=== PATIENT | male | born 1970 | race Hispanic/Latino ===

== ENCOUNTER 2018-08-07 21:18 | Inpatient (IN) | payer MEDICARE, OTHER ==
[~2018-08-07] VITALS: Ht 177.8 cm; Wt 149.3 kg
[~2018-08-07 21:18] MED LIST: CARB200T PO; ESOM20CA34 PO; FLUT16H NASAL; VALS80TA30 PO
[2018-08-07 22:57] LABS: BASOPHILS % (AUTO) 0.5 % (0.0-5.0); EOSINOPHILS % (AUTO) 0.6 % (0.0-8.0); LYMPHOCYTES % (AUTO) 28.8 % (21.0-51.0); MEAN CORPUSCULAR HEMOGLOBIN 29.8 pg (27.0-33.0); MEAN CORPUSCULAR HGB CONC 34.9 g/dL (32.0-36.0); MEAN CORPUSCULAR VOLUME 85.2 fL (79-99); MONOCYTES % (AUTO) 8.8 % (3.0-13.0); NEUTROPHILS % (AUTO) 61.3 % (40.0-77.0); NUCLEATED RED BLOOD CELLS 0.1 % (0.0-0.19); PLATELET COUNT (AUTO) 201 K/uL (130-400); RED BLOOD CELL COUNT(AUTO) 5.17 MIL/uL (4.50-6.20); RED CELL DISTRIBUTION WIDTH 13.5 % (11.0-15.5); WHITE BLOOD COUNT (AUTO) 6.5 K/uL (4.8-10.8)
[2018-08-07 22:58] LABS: CREATININE 0.8 mg/dL (0.5-1.5); INR 1.01 (0.85-1.15); PARTIAL THROMBOPLASTIN TIME 27.6 SEC (26.3-35.5); POTASSIUM 3.5 mmol/L (3.5-5.1); PROTHROMBIN TIME 10.6 SEC (9.6-11.6)
[2018-08-07 23:01] LABS: APPEARANCE,URINE Clear (CLEAR); BILIRUBIN,URINE Negative (NEGATIVE); COLOR,URINE Yellow (YELLOW); GLUCOSE, URINE (UA) >=1000 mg/dL (NEGATIVE); KETONES,URINE Negative (NEGATIVE); LEUKOCYTE ESTERASE ,URINE Negative (NEGATIVE); NITRATE,URINE Negative (NEGATIVE); OCCULT BLOOD,URINE Negative (NEGATIVE); PROTEIN,URINE Negative (NEGATIVE)
[2018-08-07 23:03] LABS: ALBUMIN 3.8 g/dL (3.5-5.0); BILIRUBIN,TOTAL 0.3 mg/dL (0.2-1.0); TOTAL PROTEIN, SERUM 8.3 g/dL (6.0-8.3)
[2018-08-07 23:30] LABS: BACTERIA,URINE Moderate /HPF (None Seen); RBC,URINE 0-1 /HPF (0-1); WBC,URINE 0-1 /HPF (0-1)
[2018-08-07 23:31] LABS: SQUAMOUS EPITHELIAL CELL,UR 0-2 /HPF (0-2)
[2018-08-08] MEDS ORDERED: ONDANSETRON HCL 4 MG/2 ML VIAL IVP PRN (00:30)
[2018-08-08] MEDS ORDERED: ACETAMINOPHEN 325 MG TAB PO PRN (00:30)
[2018-08-08] MEDS ORDERED: MORPHINE SULFATE 2 MG/ML 1ML SYG IVP PRN (00:30)
[2018-08-08] MEDS ORDERED: DEXAMETHASONE SOD PHOSPHATE 4 MG/ML 1ML VIAL ONE (00:49)
[2018-08-08 03:00] VITALS: BP 135/78
[2018-08-08] MEDS ORDERED: LOSA50TA64 PO (03:00)
[2018-08-08] MEDS ORDERED: CARB200T6 PO (03:00)
[2018-08-08] MEDS ORDERED: TOPI100T37 PO (03:00)
[2018-08-08] MEDS ORDERED: PRAV20TA4 PO (03:00)
[2018-08-08] MEDS ORDERED: PANT40TA25 PO (03:00)
[2018-08-08] MEDS ORDERED: ASPI-555 PO (03:00)
[2018-08-08] MEDS ORDERED: LORA10CA9 PO (03:00)
[2018-08-08] MEDS ORDERED: DAPA10TA PO (03:00)
[2018-08-08 08:12] VITALS: BP 123/72
[2018-08-08] MEDS ORDERED: DAPAGLIFLOZIN PROPANEDIOL 10 MG PO SCH (09:00)
[2018-08-08] MEDS ORDERED: LOSARTAN 50 MG TABLET PO SCH (09:00)
[2018-08-08] MEDS ORDERED: PANTOPRAZOLE SODIUM 40 MG TABLET.DR PO SCH (09:00)
[2018-08-08] MEDS ORDERED: LORATADINE 10 MG TABLET PO SCH (09:00)
[2018-08-08] MEDS ORDERED: TOPIRAMATE 100 MG TAB PO SCH (09:00)
[2018-08-08] MEDS ORDERED: ASPIRIN 81MG TAB.CHEW PO SCH (09:00)
[2018-08-08] MEDS: DEXAMETHASONE SOD PHOSPHATE 4 MG/ML 1ML VIAL IVP SCH ×2 (09:19→21:40)
[2018-08-08] MEDS: CARBAMAZEPINE 200 MG TABLET PO SCH ×2 (09:21→21:39)
--- NOTE | 2018-08-08 11:33 | NUR ---
[address] Lundberg to [facility] under the care of Dr Constantino for higher level of care . 1053 chart reviewed and met with pt and family inform them of transfer process and all in agreement for the transfer. 1120 spoke with [facility] transfer center coordinator information provided and coordinator will call back . Marcelo payne o
[2018-08-08 12:00] VITALS: BP 123/70
--- NOTE | 2018-08-08 12:17 | NUR ---
1154 transfer center call back and further information provided as requested will call back. Marcelo payne
--- NOTE | 2018-08-08 12:18 | NUR ---
4018 transfer center coordinator Antione call back with a denial due to capacity. primary nurse made aware. Marcelo
--- NOTE | 2018-08-08 13:36 | NUR ---
DCP Pt lives with Teo Sanchez [phone] and son. Pt reports he is independent, no DME or in home care services. Sees [facility], denies dc needs, will dc home Addendum: 08/08/18 at 1337 by GHAZALA MURCIA SS Amended: Links added.
[2018-08-08 16:00] VITALS: BP 124/76
--- NOTE | 2018-08-08 16:18 | NUR ---
8365 transfer request call to [facility] spoke with transfer intake nurse Miguelina information provided will call back. 1257 Dr wynn here on rounds he updated pt and family on transfer and process. and as per Dr wynn , pt is to remain in hospital till bed available at [facility] pt and spouse verbalized understanding. primary nurse made aware of plan. Marcelo payne
--- NOTE | 2018-08-08 16:26 | NUR ---
5786 call back from [facility] at [facility] will follow up in [place] rn
--- NOTE | 2018-08-08 16:45 | NUR ---
update given to pt and primary nurse both verbalized understanding . will follow up in am . Marcelo payne
--- NOTE | 2018-08-08 17:55 | NUR ---
LIAM IGLESIAS AWARE OF PT'S STATUS ON TRANSFERRED PER HOUSE SUP OK TO TRANSFER PT RESUME HOME MEDS CHARGE NURSE AWARE HOUSE SUP AWARE
--- NOTE | 2018-08-08 18:00 | NUR ---
DR. DIAZ AWARE OF PT'S TRANSFER
--- NOTE | 2018-08-08 18:20 | NUR ---
FULL SBAR REPORT GIVEN TO SAMIRA BANUELOS FROM [facility] IN [place] MEDICATION REC. FAXED CD' OF IMAGES IN THE YELLOW FOLDER NURSE SAMIRA MADE AWARE
--- NOTE | 2018-08-08 18:30 | NUR ---
[facility] , CALLED AGAIN REGARDING TRANSFER OF PT DEEJAY DRIVER SPOKE WITH HER PT WAITING TO BE TRANSFER WHEN EMS IS READY TO PICK HIM UP
--- NOTE | 2018-08-08 19:40 | NUR ---
FULL REPORT GIVEN TO NIGHT NURSE
[2018-08-08] MEDS ORDERED: ***HM***Pravastatin Sodium 20 MG PO SCH (21:00)
--- NOTE | 2018-08-08 22:40 | NUR ---
EMS ARRIVED TO SOLAR SALES ADVISOR PATIENT. D/C PAPERWORK SIGNED AND PACKET GIVEN TO EMS.
== END 2018-08-08 22:40 | disposition short-term general hospital (02) | DRG 55 ==
LOC: EDH 21:18 → EDHIP 08-08 00:14 → 4BH 08-08 02:33
PROVIDERS: ADMIT Internal Medicine Infectious Disease; ATTEND Internal Medicine Infectious Disease
DX: D32.0 Benign neoplasm of cerebral meninges (principal); Z68.42 Body mass index [BMI] 45.0-49.9, adult; G81.94 Hemiplegia, unspecified affecting left nondominant side; G40.209 Localization-related (focal) (partial) symptomatic epilepsy and epileptic syndromes with complex partial seizures, not intractable, without status epilepticus; D18.02 Hemangioma of intracranial structures; E66.01 Morbid (severe) obesity due to excess calories; I10 Essential (primary) hypertension; E11.9 Type 2 diabetes mellitus without complications; D18.09 Hemangioma of other sites; K21.9 Gastro-esophageal reflux disease without esophagitis; I25.10 Atherosclerotic heart disease of native coronary artery without angina pectoris; E78.5 Hyperlipidemia, unspecified; G93.89 Other specified disorders of brain; Z92.3 Personal history of irradiation; Z85.841 Personal history of malignant neoplasm of brain
CPT/HCPCS: 36415; 80053; 81001; 82948; 84484; 85025; 85610; 85730; 93005; G0378; J1100

== ENCOUNTER 2018-08-19 13:48 | Emergency (ER) | payer MEDICARE ==
[~2018-08-19 13:48] MED LIST changes: +ASPI-555 PO; -CARB200T PO; +CARB200T6 PO; +DAPA10TA PO; -ESOM20CA34 PO; -FLUT16H NASAL; +LORA10CA9 PO; +LOSA50TA64 PO; +PANT40TA25 PO; +PRAV20TA4 PO; +TOPI100T37 PO; -VALS80TA30 PO
[2018-08-19 15:26] LABS: APPEARANCE,URINE Turbid (CLEAR); BILIRUBIN,URINE Negative (NEGATIVE); COLOR,URINE Dark Yellow (YELLOW); GLUCOSE, URINE (UA) Negative (NEGATIVE); KETONES,URINE Negative (NEGATIVE); LEUKOCYTE ESTERASE ,URINE Large (NEGATIVE); NITRATE,URINE Positive (NEGATIVE); OCCULT BLOOD,URINE Moderate (NEGATIVE); PROTEIN,URINE POS 1+ (NEGATIVE)
[2018-08-19 16:00] LABS: AMORPHOUS SEDIMENT,UR Moderate /LPF (None Seen); BACTERIA,URINE Moderate /HPF (None Seen); RBC,URINE 0-1 /HPF (0-1); SQUAMOUS EPITHELIAL CELL,UR 0-2 /HPF (0-2)
[2018-08-19] MEDS ORDERED: CEFTRIAXONE SODIUM 1 GM ONE (17:01)
[2018-08-19 17:09] LABS: BASOPHILS % (AUTO) 0.9 % (0.0-5.0); EOSINOPHILS % (AUTO) 2.1 % (0.0-8.0); HEMATOCRIT 43.6 % (42-54); LYMPHOCYTES % (AUTO) 34.8 % (21.0-51.0); MEAN CORPUSCULAR HEMOGLOBIN 29.6 pg (27.0-33.0); MEAN CORPUSCULAR HGB CONC 34.2 g/dL (32.0-36.0); MEAN CORPUSCULAR VOLUME 86.3 fL (79-99); MONOCYTES % (AUTO) 8.9 % (3.0-13.0); NEUTROPHILS % (AUTO) 53.3 % (40.0-77.0); NUCLEATED RED BLOOD CELLS 0.1 % (0.0-0.19); PLATELET COUNT (AUTO) 168 K/uL (130-400); RED BLOOD CELL COUNT(AUTO) 5.06 MIL/uL (4.50-6.20); RED CELL DISTRIBUTION WIDTH 13.8 % (11.0-15.5); WHITE BLOOD COUNT (AUTO) 6.9 K/uL (4.8-10.8)
[2018-08-19 17:20] LABS: CREATININE 0.8 mg/dL (0.5-1.5); POTASSIUM 3.8 mmol/L (3.5-5.1)
[2018-08-19 17:27] LABS: ALBUMIN 3.5 g/dL (3.5-5.0); BILIRUBIN,TOTAL 0.5 mg/dL (0.2-1.0); TOTAL PROTEIN, SERUM 7.7 g/dL (6.0-8.3)
== END 2018-08-19 18:02 | disposition home or self-care (01) ==
LOC: EDH 13:48
DX: N30.00 Acute cystitis without hematuria (principal); R33.9 Retention of urine, unspecified; I25.10 Atherosclerotic heart disease of native coronary artery without angina pectoris; E11.9 Type 2 diabetes mellitus without complications; K21.9 Gastro-esophageal reflux disease without esophagitis; E78.5 Hyperlipidemia, unspecified; I10 Essential (primary) hypertension
CPT/HCPCS: 36415; 51702; 80053; 81001; 85025; 87077; 87088; 87186; 96374; 99284; J0696

== ENCOUNTER 2018-08-20 09:14 | Emergency (ER) | payer MEDICARE ==
[2018-08-20] MEDS ORDERED: PHENAZOPYRIDINE HCL 200 MG TABLET ONE (10:22)
[2018-08-20] MEDS ORDERED: IPRATROPIUM/ALBUTEROL SULFATE 3 ML SOLUTION IH ONE (13:29)
== END 2018-08-20 10:36 | disposition home or self-care (01) ==
LOC: EDH 09:14
DX: T83.098A Other mechanical complication of other urinary catheter, initial encounter (principal); N39.0 Urinary tract infection, site not specified; K21.9 Gastro-esophageal reflux disease without esophagitis; E78.5 Hyperlipidemia, unspecified; I10 Essential (primary) hypertension; E11.9 Type 2 diabetes mellitus without complications; I25.10 Atherosclerotic heart disease of native coronary artery without angina pectoris; Z98.890 Other specified postprocedural states
CPT/HCPCS: 99282

== ENCOUNTER 2018-11-08 10:04 | Emergency (ER) | payer MEDICARE ==
[~2018-11-08 10:04] MED LIST changes: +DEXA4TAB PO
[2018-11-08] MEDS ORDERED: HYDROCODONE/ACETAMINOPHEN 5/325 MG TAB ONE (11:01)
== END 2018-11-08 11:11 | disposition home or self-care (01) ==
LOC: EDH 10:04
DX: S46.011A Strain of muscle(s) and tendon(s) of the rotator cuff of right shoulder, initial encounter (principal); I25.10 Atherosclerotic heart disease of native coronary artery without angina pectoris; E11.9 Type 2 diabetes mellitus without complications; K21.9 Gastro-esophageal reflux disease without esophagitis; E78.5 Hyperlipidemia, unspecified; I10 Essential (primary) hypertension; X50.0XXA Overexertion from strenuous movement or load, initial encounter; Y93.89 Activity, other specified; Y92.89 Other specified places as the place of occurrence of the external cause; Y99.8 Other external cause status
CPT/HCPCS: 73030

== ENCOUNTER 2018-11-16 01:32 | Emergency (ER) | payer MEDICARE ==
[2018-11-16 02:13] LABS: BASOPHILS % (AUTO) 1.1 % (0.0-5.0); EOSINOPHILS % (AUTO) 1.6 % (0.0-8.0); HEMATOCRIT 48.5 % (42-54); LYMPHOCYTES % (AUTO) 17.8 % (21.0-51.0); MEAN CORPUSCULAR HGB CONC 34.9 g/dL (32.0-36.0); MEAN CORPUSCULAR VOLUME 91.6 fL (79-99); MONOCYTES % (AUTO) 10.6 % (3.0-13.0); NEUTROPHILS % (AUTO) 68.9 % (40.0-77.0); NUCLEATED RED BLOOD CELLS 0.1 % (0.0-0.19); PLATELET COUNT (AUTO) 203 K/uL (130-400); RED BLOOD CELL COUNT(AUTO) 5.29 MIL/uL (4.50-6.20); RED CELL DISTRIBUTION WIDTH 16.5 % (11.0-15.5); WHITE BLOOD COUNT (AUTO) 6.1 K/uL (4.8-10.8)
[2018-11-16 02:23] LABS: CREATININE 0.8 mg/dL (0.5-1.5); POTASSIUM 3.7 mmol/L (3.5-5.1)
[2018-11-16 02:27] LABS: ALBUMIN 3.9 g/dL (3.5-5.0); BILIRUBIN,TOTAL 0.7 mg/dL (0.2-1.0); TOTAL PROTEIN, SERUM 7.6 g/dL (6.0-8.3)
[2018-11-16 02:41] LABS: APPEARANCE,URINE SLIGHTLY CLOUDY (CLEAR); BILIRUBIN,URINE Negative (NEGATIVE); COLOR,URINE Yellow (YELLOW); GLUCOSE, URINE (UA) >=1000 mg/dL (NEGATIVE); KETONES,URINE Negative (NEGATIVE); LEUKOCYTE ESTERASE ,URINE Negative (NEGATIVE); NITRATE,URINE Negative (NEGATIVE); OCCULT BLOOD,URINE Negative (NEGATIVE); PROTEIN,URINE Negative (NEGATIVE)
[2018-11-16 02:55] LABS: AMORPHOUS SEDIMENT,UR Moderate /LPF (None Seen); BACTERIA,URINE None Seen /HPF (None Seen); MUCUS,URINE Rare LPF (None Seen); RBC,URINE None Seen /HPF (0-1); SQUAMOUS EPITHELIAL CELL,UR Few /HPF (0-2); WBC,URINE None Seen /HPF (0-1); YEAST,URINE BUDDING Few /HPF (None Seen)
[2018-11-16] MEDS ORDERED: SODIUM CHLORIDE 0.9% 1000ML 1,000 ML IV ONE (03:09)
[2018-11-16] MEDS ORDERED: HYOSCYAMINE SULFATE 0.125 MG TAB.SUBL SL ONE (04:24)
== END 2018-11-16 04:58 | disposition home or self-care (01) ==
LOC: EDH 01:32
DX: K59.00 Constipation, unspecified (principal); E11.9 Type 2 diabetes mellitus without complications; E78.5 Hyperlipidemia, unspecified; I10 Essential (primary) hypertension; K21.9 Gastro-esophageal reflux disease without esophagitis
CPT/HCPCS: 36415; 74018; 74176; 80053; 81001; 82150; 83690; 85025; 99285; J7030

== ENCOUNTER 2018-12-03 19:49 | Emergency (ER) | payer MEDICARE ==
[2018-12-03] MEDS ORDERED: ONDANSETRON HCL 4 MG/2 ML VIAL ONE (21:12)
[2018-12-03] MEDS ORDERED: MORPHINE SULFATE 2 MG/ML 1ML SYG ONE (21:13)
[2018-12-03] MEDS ORDERED: SODIUM CHLORIDE 0.9% 1000ML 1,000 ML IV ONE (21:14)
[2018-12-03 21:15] LABS: BASOPHILS % (AUTO) 0.6 % (0.0-5.0); EOSINOPHILS % (AUTO) 0.2 % (0.0-8.0); HEMATOCRIT 42.5 % (42-54); LYMPHOCYTES % (AUTO) 5.6 % (21.0-51.0); MEAN CORPUSCULAR HEMOGLOBIN 33.3 pg (27.0-33.0); MEAN CORPUSCULAR HGB CONC 35.4 g/dL (32.0-36.0); MEAN CORPUSCULAR VOLUME 94.3 fL (79-99); MONOCYTES % (AUTO) 7.6 % (3.0-13.0); NUCLEATED RED BLOOD CELLS 0.1 % (0.0-0.19); PLATELET COUNT (AUTO) 82 K/uL (130-400); RED BLOOD CELL COUNT(AUTO) 4.51 MIL/uL (4.50-6.20); RED CELL DISTRIBUTION WIDTH 16.6 % (11.0-15.5); WHITE BLOOD COUNT (AUTO) 4.7 K/uL (4.8-10.8)
[2018-12-03 21:31] LABS: CREATININE 0.7 mg/dL (0.5-1.5); PLATELET MORPHOLOGY COMMENT SLIGHTLY DECREASED
[2018-12-03 21:32] LABS: INR 0.91 (0.85-1.15); PROTHROMBIN TIME 9.6 SEC (9.6-11.6)
[2018-12-03 21:37] LABS: ALBUMIN 3.1 g/dL (3.5-5.0); BILIRUBIN,TOTAL 0.5 mg/dL (0.2-1.0); TOTAL PROTEIN, SERUM 6.3 g/dL (6.0-8.3)
[2018-12-03] MEDS ORDERED: IOHEXOL-350 50ML VIAL IV ONE (21:58)
== END 2018-12-03 23:20 | disposition home or self-care (01) ==
LOC: EDH 19:49
DX: C71.9 Malignant neoplasm of brain, unspecified (principal); R79.1 Abnormal coagulation profile; E11.9 Type 2 diabetes mellitus without complications; K21.9 Gastro-esophageal reflux disease without esophagitis; E78.5 Hyperlipidemia, unspecified; I10 Essential (primary) hypertension; I25.10 Atherosclerotic heart disease of native coronary artery without angina pectoris
CPT/HCPCS: 36415; 70470; 80053; 85025; 85610; 85730; 96374; 96375; 99285; J2405; J7030; Q9967

== ENCOUNTER 2019-04-07 02:16 | Emergency (ER) | payer MEDICARE ==
[2019-04-07 02:55] LABS: BASOPHILS % (AUTO) 0.8 % (0.0-5.0); EOSINOPHILS % (AUTO) 0.3 % (0.0-8.0); HEMATOCRIT 44.9 % (42-54); LYMPHOCYTES % (AUTO) 20.1 % (21.0-51.0); MEAN CORPUSCULAR HEMOGLOBIN 33.8 pg (27.0-33.0); MEAN CORPUSCULAR HGB CONC 35.2 g/dL (32.0-36.0); MONOCYTES % (AUTO) 7.7 % (3.0-13.0); NEUTROPHILS % (AUTO) 71.1 % (40.0-77.0); NUCLEATED RED BLOOD CELLS 0.2 % (0.0-0.19); PLATELET COUNT (AUTO) 103 K/uL (130-400); RED BLOOD CELL COUNT(AUTO) 4.67 MIL/uL (4.50-6.20); RED CELL DISTRIBUTION WIDTH 15.1 % (11.0-15.5); WHITE BLOOD COUNT (AUTO) 4.3 K/uL (4.8-10.8)
[2019-04-07 03:09] LABS: CREATININE 0.8 mg/dL (0.5-1.5); POTASSIUM 3.3 mmol/L (3.5-5.1)
[2019-04-07 03:13] LABS: ALBUMIN 3.2 g/dL (3.5-5.0); BILIRUBIN,TOTAL 2.4 mg/dL (0.2-1.0); TOTAL PROTEIN, SERUM 6.7 g/dL (6.0-8.3)
== END 2019-04-07 05:56 | disposition home or self-care (01) ==
LOC: EDH 02:16
DX: K80.50 Calculus of bile duct without cholangitis or cholecystitis without obstruction (principal); E11.9 Type 2 diabetes mellitus without complications; I25.10 Atherosclerotic heart disease of native coronary artery without angina pectoris; K21.9 Gastro-esophageal reflux disease without esophagitis; E78.5 Hyperlipidemia, unspecified; I10 Essential (primary) hypertension
CPT/HCPCS: 36415; 74176; 76705; 80053; 83690; 85025

== ENCOUNTER 2019-05-08 22:52 | Emergency (ER) | payer MEDICARE ==
[2019-05-08] MEDS ORDERED: KETOROLAC TROMETHAMINE 30MG/ML ONE (23:54)
[2019-05-08] MEDS ORDERED: ORPHENADRINE CITRATE 30 MG/ML ML ONE (23:54)
[2019-05-08 23:55] LABS: BASOPHILS % (AUTO) 1.2 % (0.0-5.0); EOSINOPHILS % (AUTO) 0.3 % (0.0-8.0); HEMATOCRIT 45.6 % (42-54); LYMPHOCYTES % (AUTO) 24.2 % (21.0-51.0); MEAN CORPUSCULAR HEMOGLOBIN 34.1 pg (27.0-33.0); MEAN CORPUSCULAR HGB CONC 34.9 g/dL (32.0-36.0); MEAN CORPUSCULAR VOLUME 97.8 fL (79-99); MONOCYTES % (AUTO) 8.2 % (3.0-13.0); NEUTROPHILS % (AUTO) 66.1 % (40.0-77.0); NUCLEATED RED BLOOD CELLS 0.1 % (0.0-0.19); PLATELET COUNT (AUTO) 91 K/uL (130-400); RED BLOOD CELL COUNT(AUTO) 4.67 MIL/uL (4.50-6.20); RED CELL DISTRIBUTION WIDTH 15.7 % (11.0-15.5)
[2019-05-09] LABS: CREATININE 0.6 mg/dL (0.5-1.5); POTASSIUM 3.7 mmol/L (3.5-5.1)
[2019-05-09 00:05] LABS: INR 0.98 (0.85-1.15); PARTIAL THROMBOPLASTIN TIME 22.9 SEC (26.3-35.5); PROTHROMBIN TIME 10.3 SEC (9.6-11.6)
[2019-05-09 00:07] LABS: ALBUMIN 3.2 g/dL (3.5-5.0); BILIRUBIN,TOTAL 0.6 mg/dL (0.2-1.0); TOTAL PROTEIN, SERUM 6.8 g/dL (6.0-8.3)
[2019-05-09] MEDS ORDERED: MORPHINE SULFATE 2 MG/ML 1ML SYG ONE (02:24)
[2019-05-09] MEDS ORDERED: APIXABAN 2.5 MG TABLET PO ONE (03:35)
== END 2019-05-09 04:00 | disposition home or self-care (01) ==
LOC: EDH 22:52
DX: I82.492 Acute embolism and thrombosis of other specified deep vein of left lower extremity (principal); M54.5 Low back pain; E11.9 Type 2 diabetes mellitus without complications; K21.9 Gastro-esophageal reflux disease without esophagitis; E78.5 Hyperlipidemia, unspecified; I10 Essential (primary) hypertension
CPT/HCPCS: 36415; 73590; 80053; 85025; 85610; 85730; 93971; 96374; 96375 ×2; 99285; J1885; J2360

== ENCOUNTER 2019-08-22 13:26 | Inpatient (IN) | payer MEDICARE, OTHER ==
[~2019-08-22] VITALS: Ht 180.3 cm; Wt 118.5 kg
[2019-08-22 15:02] LABS: BASOPHILS % (AUTO) 0.3 % (0.0-5.0); HEMATOCRIT 48.6 % (42-54); LYMPHOCYTES % (AUTO) 27.3 % (21.0-51.0); MEAN CORPUSCULAR HEMOGLOBIN 33.5 pg (27.0-33.0); MEAN CORPUSCULAR HGB CONC 34.8 g/dL (32.0-36.0); MEAN CORPUSCULAR VOLUME 96.2 fL (79-99); MONOCYTES % (AUTO) 9.1 % (3.0-13.0); PLATELET COUNT (AUTO) 109 K/uL (130-400); RED BLOOD CELL COUNT(AUTO) 5.05 MIL/uL (4.50-6.20); RED CELL DISTRIBUTION WIDTH 13.2 % (11.0-15.5); WHITE BLOOD COUNT (AUTO) 3.8 K/uL (4.8-10.8)
[2019-08-22 15:13] LABS: CREATININE 0.6 mg/dL (0.5-1.5); POTASSIUM 3.7 mmol/L (3.5-5.1)
[2019-08-22 15:16] LABS: ALBUMIN 3.2 g/dL (3.5-5.0); BILIRUBIN,TOTAL 0.6 mg/dL (0.2-1.0); TOTAL PROTEIN, SERUM 6.8 g/dL (6.0-8.3)
[2019-08-22 18:30] VITALS: BP 99/78
[2019-08-22 19:00] VITALS: BP 110/85
[2019-08-22] MEDS ORDERED: ACETAMINOPHEN 325 MG TAB PO PRN (22:00)
[2019-08-22] MEDS ORDERED: ONDANSETRON HCL 4 MG/2 ML VIAL IVP PRN (22:00)
[2019-08-22] MEDS ORDERED: DEXA4TAB PO (22:56)
[2019-08-22] MEDS ORDERED: LACT10SO PO (22:56)
[2019-08-22] MEDS ORDERED: CARB200T6 PO (22:56)
[2019-08-22] MEDS ORDERED: METO-391 PO (22:56)
[2019-08-22] MEDS ORDERED: SULF1TAB89 PO (22:56)
[2019-08-22] MEDS ORDERED: SENN8.6T32 PO (22:56)
[2019-08-22] MEDS ORDERED: APIX2.5T PO (22:56)
[2019-08-22] MEDS ORDERED: ACET1TAB12 PO (22:56)
[2019-08-22] MEDS ORDERED: LEVE500T19 PO (22:56)
[2019-08-22 23:00] VITALS: BP 120/76
[2019-08-22] MEDS ORDERED: DEXTROSE 50%-WATER 50 ML DISP.SYRIN IV PRN (23:30)
[2019-08-22] MEDS ORDERED: GLUCAGON 1MG KIT 1 MG ML IM PRN (23:30)
[2019-08-23] MEDS ORDERED: DEXTROSE 50%-WATER 50 ML DISP.SYRIN IV PRN (01:30)
[2019-08-23] MEDS ORDERED: GLUCAGON 1MG KIT 1 MG ML IM PRN (01:30)
[2019-08-23 03:00] VITALS: BP 134/84
[2019-08-23] MEDS: INSULIN HUMULIN R 100 UNIT/ML 3ML SQ SCH ×4 (05:38→20:44)
[2019-08-23 05:40] LABS: BASOPHILS % (AUTO) 0.3 % (0.0-5.0); HEMATOCRIT 44.1 % (42-54); LYMPHOCYTES % (AUTO) 23.9 % (21.0-51.0); MEAN CORPUSCULAR HEMOGLOBIN 33.6 pg (27.0-33.0); MEAN CORPUSCULAR HGB CONC 34.9 g/dL (32.0-36.0); MEAN CORPUSCULAR VOLUME 96.3 fL (79-99); MONOCYTES % (AUTO) 8.5 % (3.0-13.0); PLATELET COUNT (AUTO) 104 K/uL (130-400); RED BLOOD CELL COUNT(AUTO) 4.58 MIL/uL (4.50-6.20); RED CELL DISTRIBUTION WIDTH 13.3 % (11.0-15.5); WHITE BLOOD COUNT (AUTO) 3.5 K/uL (4.8-10.8)
[2019-08-23 05:46] LABS: INR 0.92 (0.85-1.15); PARTIAL THROMBOPLASTIN TIME 23.3 SEC (26.3-35.5)
[2019-08-23 07:23] VITALS: BP 118/85
[2019-08-23] MEDS ORDERED: INSULIN R PO SS1 SQ SCH (07:30)
[2019-08-23] MEDS: DEXAMETHASONE 4 MG TAB PO SCH ×2 (08:00→17:00)
[2019-08-23] MEDS: PANTOPRAZOLE SODIUM 40 MG TABLET.DR PO SCH (09:00)
[2019-08-23] MEDS: FARXIGA 10 MG PO SCH (09:00)
[2019-08-23] MEDS: CARBAMAZEPINE 200 MG TABLET PO SCH ×2 (09:00→21:19)
[2019-08-23] MEDS: LOSARTAN 50 MG TABLET PO SCH (09:00)
[2019-08-23] MEDS: LEVETIRACETAM 500 MG TABLET PO SCH ×2 (09:00→21:26)
[2019-08-23] MEDS: METOPROLOL TARTRATE 25 MG TAB PO SCH ×3 (09:00→21:19)
[2019-08-23] MEDS: TOPIRAMATE 100 MG TAB PO SCH (09:00)
[2019-08-23] MEDS: ASPIRIN 81MG TAB.CHEW PO SCH (09:00)
[2019-08-23] MEDS: ACETAMINOPHEN-CODEINE 300/30MG TAB PO PRN (10:04)
[2019-08-23] MEDS: LACTULOSE 20 GM/30 ML UDCUP PO SCH ×2 (10:04→21:18)
[2019-08-23] MEDS ORDERED: MORPHINE SULFATE 2 MG/ML 1ML SYG IVP PRN (11:00)
[2019-08-23 12:00] VITALS: BP 133/94
--- NOTE | 2019-08-23 19:19 | NUR ---
D/C PLAN CM spoke to pts spouse regarding d/c planning. Pt lives with spouse. Spouse assist in care. States pt has [facility]. States she would like to return to same services at d/c. ELVIA obtained consent for ANJU to [facility]. No other needs verbalized or identified. Plan to home. CM to f/u. Addendum: 08/23/19 at 1 by GINGER POND CM Amended: Links added.
[2019-08-23 20:00] VITALS: BP 113/71
[2019-08-23] MEDS: SENNOSIDES 8.6 MG TABLET PO SCH (21:18)
[2019-08-24] VITALS: BP 113/75
[2019-08-24 03:46] VITALS: BP 106/73
[2019-08-24] MEDS: INSULIN HUMULIN R 100 UNIT/ML 3ML SQ SCH ×4 (06:19→21:00)
--- NOTE | 2019-08-24 06:20 | NUR ---
BLADDER SCAN Patient has not voided since 193, bladder scan done, only 67 mls. According to patient does not void during the night, till he wakes up in the morning. Patient denies any discomfort, very sleepy due to fall asleep at 0300 hours.
[2019-08-24] MEDS: FARXIGA 10 MG PO SCH (07:51)
[2019-08-24] MEDS ORDERED: APIXABAN 2.5 MG TABLET PO SCH (08:00)
[2019-08-24] MEDS ORDERED: SULFAMETHOX-TMP DS 800/160 TAB PO SCH (08:00)
[2019-08-24 08:18] VITALS: BP 118/66
[2019-08-24] MEDS: LACTULOSE 20 GM/30 ML UDCUP PO SCH ×2 (08:22→22:52)
[2019-08-24] MEDS: LEVETIRACETAM 500 MG TABLET PO SCH ×2 (08:23→22:55)
[2019-08-24] MEDS: ASPIRIN 81MG TAB.CHEW PO SCH (08:23)
[2019-08-24] MEDS: DEXAMETHASONE 4 MG TAB PO SCH ×2 (08:23→18:29)
[2019-08-24] MEDS: METOPROLOL TARTRATE 25 MG TAB PO SCH ×2 (08:23→22:53)
[2019-08-24] MEDS: LOSARTAN 50 MG TABLET PO SCH (08:23)
[2019-08-24] MEDS: TOPIRAMATE 100 MG TAB PO SCH (08:23)
[2019-08-24] MEDS: PANTOPRAZOLE SODIUM 40 MG TABLET.DR PO SCH (08:24)
[2019-08-24] MEDS: CARBAMAZEPINE 200 MG TABLET PO SCH ×2 (08:24→22:52)
[2019-08-24] MEDS: ACETAMINOPHEN-CODEINE 300/30MG TAB PO PRN ×2 (08:49→23:04)
--- NOTE | 2019-08-24 10:46 | NUR ---
RD NOTIFICATION DIET: NPO, PENDING PROCEDURE AT THIS TIME. LABS REVIEWED (AST 138, ALT 454, ALK PHOS 141). BUTTOCKS ULCER NOTED. BG LEVEL IN THE NORMAL LIMIT. LABS AND MEDS REVIEWED. RD RECOMMENDS TO ADD ROMEO AND PROMOD BID TO AID WOUND HEALING RECOMMEND VITAMIN C AND ZINC SULFATE TO AID WOUND HEALING RECOMMEND TO ADVANCE DIET TOLERATED WHEN MEDICALLY FEASIBLE WILL CONTINUE TO MONITOR AND FOLLOW UP, THANK YOU. Addendum: 08/24/19 at [address] Amended: Links added.
[2019-08-24 12:06] VITALS: BP 109/69
[2019-08-24 13:20] LABS: CREATININE 0.5 mg/dL (0.5-1.5); POTASSIUM 3.3 mmol/L (3.5-5.1)
[2019-08-24 13:25] LABS: TOTAL PROTEIN, SERUM 6.1 g/dL (6.0-8.3)
--- NOTE | 2019-08-24 14:30 | NUR ---
CM NOTE MEET WITH PATIENT AND IN ROOM. PER PATIENT, WAS WITH [facility] AND WOULD LIKE TO RETURN. ANJU SIGNED PREVIOUS. [facility] CALLED, PER SENIOR SECURITY ARCHITECT, PATIENT OK TO RETURN. CLINICALS FAXED. [facility] NURSE, TARAN DAVALOS, HERE TO SEE PATIENT, COPY OF CLINICALS PACKET GIVEN TO HIM TO REVIEW. PER MR. DAVALOS, PATIENT OK TO RETURN TO SERVICES ONCE DC FROM HOSPITAL. CONVERSATIONS BETWEEN PATIENT, MR DAVALOS AND I REPORTED TO PRIMARY NURSE, FABIANO RUTHERFORD.
[2019-08-24 16:00] VITALS: BP 102/71
[2019-08-24 20:00] VITALS: BP 108/61
[2019-08-24] MEDS: SENNOSIDES 8.6 MG TABLET PO SCH (22:52)
[2019-08-25] VITALS: BP 124/79
[2019-08-25 04:00] VITALS: BP 132/80
[2019-08-25 06:12] LABS: HEMATOCRIT 42.4 % (42-54); MEAN CORPUSCULAR HEMOGLOBIN 33.8 pg (27.0-33.0); MEAN CORPUSCULAR HGB CONC 35.6 g/dL (32.0-36.0); MEAN CORPUSCULAR VOLUME 94.9 fL (79-99); PLATELET COUNT (AUTO) 89 K/uL (130-400); RED BLOOD CELL COUNT(AUTO) 4.47 MIL/uL (4.50-6.20); WHITE BLOOD COUNT (AUTO) 3.8 K/uL (4.8-10.8)
[2019-08-25] MEDS: INSULIN HUMULIN R 100 UNIT/ML 3ML SQ SCH (06:27)
[2019-08-25 08:00] VITALS: BP 108/95
[2019-08-25] MEDS: FARXIGA 10 MG PO SCH (09:00)
[2019-08-25] MEDS: METOPROLOL TARTRATE 25 MG TAB PO SCH (09:00)
[2019-08-25] MEDS ORDERED: SULFAMETHOX-TMP DS 800/160 TAB PO SCH (09:00)
[2019-08-25] MEDS ORDERED: APIXABAN 2.5 MG TABLET PO SCH (09:00)
[2019-08-25] MEDS: LEVETIRACETAM 500 MG TABLET PO SCH (10:49)
[2019-08-25] MEDS: LOSARTAN 50 MG TABLET PO SCH (10:50)
[2019-08-25] MEDS: ASPIRIN 81MG TAB.CHEW PO SCH (10:50)
[2019-08-25] MEDS: DEXAMETHASONE 4 MG TAB PO SCH (10:51)
[2019-08-25] MEDS: TOPIRAMATE 100 MG TAB PO SCH (10:51)
[2019-08-25] MEDS: CARBAMAZEPINE 200 MG TABLET PO SCH (10:52)
[2019-08-25] MEDS: PANTOPRAZOLE SODIUM 40 MG TABLET.DR PO SCH (10:52)
[2019-08-25] MEDS: LACTULOSE 20 GM/30 ML UDCUP PO SCH (10:52)
[2019-08-25 12:00] VITALS: BP 120/94
--- NOTE | 2019-08-25 15:17 | NUR ---
DISCHARGE Paperwork signed by . Report called to hospice nurse but she was not available. Staff stated she would call back. Non-emergency ambulance was called; pending to arrive. is aware to call back hospice once they arrive home; verbalized and demonstrated understanding.
--- NOTE | 2019-08-25 17:00 | NUR ---
DISCHARGE Gave report to nurse Jerilyn with hospice. Ambulance taking pt home with hospice. Remoed hep lock to Right AC sitel; catheter intact; site intact. Discharge instructions given to .
== END 2019-08-25 16:10 | disposition hospice, home (50) | DRG 392 ==
LOC: EDH 13:26 → EDHIP 16:50 → 3BH 18:15
PROVIDERS: ADMIT Internal Medicine Infectious Disease; ATTEND Internal Medicine Infectious Disease
DX: R10.11 Right upper quadrant pain (principal); C71.9 Malignant neoplasm of brain, unspecified; E66.01 Morbid (severe) obesity due to excess calories; E11.9 Type 2 diabetes mellitus without complications; I10 Essential (primary) hypertension; Z51.5 Encounter for palliative care; R53.81 Other malaise; G40.909 Epilepsy, unspecified, not intractable, without status epilepticus; Z83.3 Family history of diabetes mellitus; Z92.3 Personal history of irradiation; Z68.36 Body mass index [BMI] 36.0-36.9, adult; Z74.01 Bed confinement status
CPT/HCPCS: 36415; 71046; 76705; 78227; 80053; 82150; 82948; 83690; 83735; 84484; 85025; 85027; 85378; 85610; 85730; 93005; A9537; G0378; J8540

== ENCOUNTER 2019-11-22 13:55 | Inpatient (IN) | payer MEDICARE, OTHER ==
[~2019-11-22] VITALS: Ht 175.3 cm; Wt 110.7 kg
[~2019-11-22 13:55] MED LIST changes: +ACET1TAB12 PO; +APIX2.5T PO; -ASPI-555 PO; +ASPI-556 PO; +LACT10SO PO; +LEVE500T19 PO; -LORA10CA9 PO; +METO-391 PO; -PANT40TA25 PO; +PANT40TA54 PO; -PRAV20TA4 PO; +SENN8.6T32 PO; +SULF1TAB89 PO
[2019-11-22] MEDS ORDERED: LEVETIRACETAM 500 MG/5 ML SD VIAL IV ONE ×2 (14:08→15:22)
[2019-11-22] MEDS ORDERED: DEXAMETHASONE SOD PHOSPHATE 10MG/ML 1ML VIAL ONE (14:10)
[2019-11-22 14:23] LABS: BASOPHILS % (AUTO) 0.3 % (0.0-5.0); EOSINOPHILS % (AUTO) 0.3 % (0.0-8.0); HEMATOCRIT 46.2 % (42-54); LYMPHOCYTES % (AUTO) 40.3 % (21.0-51.0); MEAN CORPUSCULAR HEMOGLOBIN 33.8 pg (27.0-33.0); MEAN CORPUSCULAR HGB CONC 34.6 g/dL (32.0-36.0); MEAN CORPUSCULAR VOLUME 97.7 fL (79-99); MONOCYTES % (AUTO) 7.7 % (3.0-13.0); NEUTROPHILS % (AUTO) 49.1 % (40.0-77.0); NUCLEATED RED BLOOD CELLS 0.5 % (0.0-0.19); PLATELET COUNT (AUTO) 139 K/uL (130-400); RED BLOOD CELL COUNT(AUTO) 4.73 MIL/uL (4.50-6.20); RED CELL DISTRIBUTION WIDTH 13.2 % (11.0-15.5); WHITE BLOOD COUNT (AUTO) 6.5 K/uL (4.8-10.8)
[2019-11-22 14:32] LABS: CREATININE 0.4 mg/dL (0.5-1.5); POTASSIUM 3.4 mmol/L (3.5-5.1)
[2019-11-22 14:38] LABS: ALBUMIN 2.9 g/dL (3.5-5.0); BILIRUBIN,TOTAL 0.9 mg/dL (0.2-1.0); TOTAL PROTEIN, SERUM 6.1 g/dL (6.0-8.3)
[2019-11-22] MEDS ORDERED: LORAZEPAM 2 MG/ML 1 ML VIAL ONE ×2 (15:23→16:18)
[2019-11-22] MEDS ORDERED: SODIUM CHLORIDE 0.9% 100 ML IV ONE ×2 (15:23→16:48)
[2019-11-22] MEDS ORDERED: MORPHINE SULFATE 4 MG/1ML SYG ONE (16:46)
[2019-11-22] MEDS ORDERED: FOSPHENYTOIN SODIUM 500 MG/10ML VIAL IJ ONE (16:47)
[2019-11-22 17:43] LABS: APPEARANCE,URINE Clear (CLEAR); BILIRUBIN,URINE Small (NEGATIVE); COLOR,URINE Orange (YELLOW); GLUCOSE, URINE (UA) Negative (NEGATIVE); KETONES,URINE Trace mg/dL (NEGATIVE); LEUKOCYTE ESTERASE ,URINE Small (NEGATIVE); NITRATE,URINE Positive (NEGATIVE); OCCULT BLOOD,URINE Negative (NEGATIVE); PROTEIN,URINE POS 1+ mg/dL (NEGATIVE)
[2019-11-22 18:10] LABS: BACTERIA,URINE Few /HPF (None Seen)
[2019-11-22 18:11] LABS: SQUAMOUS EPITHELIAL CELL,UR Few /HPF (0-2); YEAST,URINE BUDDING Moderate /HPF (None Seen)
[2019-11-22] MEDS ORDERED: COMPOUND IV MISC 1 EACH IVSOLN MISC PRN (18:30)
[2019-11-22] MEDS ORDERED: ACETAMINOPHEN 650 MG SUPPOSITORY RC PRN (18:30)
[2019-11-22] MEDS ORDERED: ONDANSETRON HCL 4 MG/2 ML VIAL IVP PRN (18:30)
[2019-11-22 20:15] VITALS: BP 131/91
[2019-11-22 23:59] VITALS: BP 113/63
[2019-11-23] VITALS (8 sets, daily range): BP systolic 118–203; BP diastolic 84–127
[2019-11-23] MEDS ORDERED: LEVETIRACETAM 1,000 MG in SODIUM CHLORIDE 0.9% 100 ML IV SCH ×2 (03:00→11:00)
[2019-11-23] MEDS ORDERED: ONDA4TAB4 PO (04:50)
[2019-11-23] MEDS ORDERED: HALO2ORA3 PO (04:50)
[2019-11-23 05:10] LABS: HEMATOCRIT 46.2 % (42-54); MEAN CORPUSCULAR HEMOGLOBIN 33.8 pg (27.0-33.0); MEAN CORPUSCULAR HGB CONC 34.8 g/dL (32.0-36.0); MEAN CORPUSCULAR VOLUME 97.1 fL (79-99); RED BLOOD CELL COUNT(AUTO) 4.76 MIL/uL (4.50-6.20); WHITE BLOOD COUNT (AUTO) 7.2 K/uL (4.8-10.8)
[2019-11-23 05:24] LABS: MAGNESIUM 2.1 mg/dL (1.80-2.40); POTASSIUM 3.4 mmol/L (3.5-5.1)
[2019-11-23 05:25] LABS: CREATININE 0.3 mg/dL (0.5-1.5)
[2019-11-23] MEDS ORDERED: CARBAMAZEPINE 200 MG TAB.ER.12H PO SCH (10:00)
[2019-11-23] MEDS ORDERED: PHARMACY COMMUNICATION MISC SCH (10:00)
[2019-11-23] MEDS ORDERED: COMPOUND IV REFRIGERATED 1 EACH IVSOLN MISC PRN (10:30)
[2019-11-23] MEDS ORDERED: COMPOUND NARC IV MISC 1 EACH IVSOLN MISC PRN (11:15)
[2019-11-23] MEDS ORDERED: CARBAMAZEPINE 200 MG TABLET PO ONE (11:46)
[2019-11-23] MEDS: DEXAMETHASONE SOD PHOSPHATE 4 MG/ML 1ML VIAL IVP SCH ×2 (11:50→21:26)
[2019-11-23] MEDS: LACOSAMIDE 200 MG/20 ML VIAL IV SCH ×2 (11:51→23:00)
[2019-11-23] MEDS: TOPIRAMATE 100 MG TAB PO SCH ×2 (12:00→21:45)
--- NOTE | 2019-11-23 12:05 | NUR ---
[facility] CONSULT PATIENT ASSESSED REQUESTED: NO OPEN WOUNDS PRESENT PER PATIENT'S NURSE ANGY, SLIGHT REDNESS TO COCCYX; ALLEGladysYN INTACT. Addendum: 11/23/19 at 1208 by AUGUSTO RYAN LVN Amended: Links added.
--- NOTE | 2019-11-23 12:15 | NUR ---
DCP- RETURN TO HOSPICE VS HOSPICE INHOUSE? SPOKE EARLIER TO DR. MACARIO AT [facility]- STATES THAT PATIENT HAS BEEN SEIZING AND SEIZING ON ADMISSION TO HOSPITAL.. UNABLE TO TAKE MEDS BY MOUTH-RECOMMENDING NGT TO GIVE MEDS TO GET MEDICATION LEVELS UP TO THERAPEUTIC AGAIN, BUT MIGHT PASS AWAY ANYWAY ON THIS ADMIT. ORDER FOR HOSPICE REFERRAL OBTAINED FROM DR. WHEELER. SPOKE BRIEFLY TO PATIENT'S SPOUSE [employer] [employer] ON THE PHONE, ADVISED HER THAT SW WILL BE COMING TO SEE HER. SHE STATED PT WAS UNDER [facility] AT HOME. CM TO FOLLOW AND ASSIST NEEDED Addendum: 11/23/19 at 1321 by KIET HAMLIN RN CM Amended: Links added.
--- NOTE | 2019-11-23 14:36 | NUR ---
[facility] SW met with Huma Sanchez who states pt was on services with [facility] since August 11. reports nurse Gillian stopped seizure medication last saturday and pt was admitted yesterday Nurse Liz and CM also made aware of above for seizure that last well over 2hours. Pt has been unresponsive since then. does not want to return to their services and MD is recommending in hospice for pt. Sw educated on inpt hospief services with [facility] and is agreeable. signed consent. called [facility] to revoke services. Sveta spoke to Kacey at [facility] and explained situation and MD recommendations. Kacey states pt will need face to face since he was already on hospice prior to admission. SVETA faxed pt info to office. Kacey to come meet with for consents.Daniel Vogel is security made aware of Inpt hospice admission.
[2019-11-23] MEDS ORDERED: DEXTROSE 50%-WATER 50 ML DISP.SYRIN IV PRN (16:00)
[2019-11-23] MEDS ORDERED: GLUCAGON 1MG KIT 1 MG ML IM PRN (16:00)
[2019-11-23] MEDS: METOPROLOL SUCCINATE 50 MG TAB.SR.24H PO SCH (16:39)
--- NOTE | 2019-11-23 16:53 | NUR ---
PATIENT EXPERIENCED SEIZURE EPISODE THAT LASTED APPROXIMATELY 1 MINUTE AND 15 SECONDS. ATIVAN 2MG IVP GIVEN. DR. MACARIO CALLED REQUESTING RESULTS FROM BRAIN CT SCAN. NOTIFIED DR. MACARIO REGARDING SEIZURE EPISODE, NEW ORDERS RECEIVED TO INCREASE TEGRETOL DOSE. NOTIFIED SPOUSE OF MEDICATION CHANGE, VOICED UNDERSTANDING.
[2019-11-23] MEDS: LORAZEPAM 2 MG/ML 1 ML VIAL IVP PRN (17:07)
[2019-11-23] MEDS ORDERED: SENNOSIDES 8.6 MG TABLET PO SCH (21:00)
[2019-11-23] MEDS: LACTULOSE 20 GM/30 ML UDCUP PO SCH (21:26)
[2019-11-23] MEDS: CARBAMAZEPINE 200 MG TAB.ER.12H PO SCH (21:27)
[2019-11-23] MEDS: LEVETIRACETAM 1,000 MG in SODIUM CHLORIDE 0.9% 100 ML IV SCH ×2 (21:27→21:30)
[2019-11-24 04:00] VITALS: BP 113/85
[2019-11-24] MEDS: LEVETIRACETAM 1,000 MG in SODIUM CHLORIDE 0.9% 100 ML IV SCH ×2 (05:57→13:29)
[2019-11-24 08:00] VITALS: BP 124/85
--- NOTE | 2019-11-24 08:00 | NUR ---
NURSE WITH [facility] VISITED WITH PT. SPOUSE.
[2019-11-24] MEDS: LORAZEPAM 2 MG/ML 1 ML VIAL IVP PRN (08:26)
--- NOTE | 2019-11-24 08:29 | NUR ---
HAD 1 SMALL SEIZURE WHICH LASTED 10 SECONDS FOLLOWED BY ANOTHER WHICH LASTED 1 MINUTE. ATIVAN 2 MG. IV GIVEN NOW.
[2019-11-24] MEDS ORDERED: METOPROLOL SUCCINATE 50 MG TAB.SR.24H PO SCH (09:00)
[2019-11-24] MEDS ORDERED: APIXABAN 2.5 MG TABLET PO SCH (09:00)
[2019-11-24] MEDS ORDERED: PANTOPRAZOLE SODIUM 40 MG TABLET.DR PO SCH (09:00)
--- NOTE | 2019-11-24 10:05 | NUR ---
INPT HOSPICE UPDATE Kacey from [facility] met with late yesterday and consents were signed. [facility] did Face to Face assessment last night as well and nurse Santhosh is coming this am to do admission into Inpt ([facility]) hospice. CM and SHEREE aware
[2019-11-24] MEDS: TOPIRAMATE 100 MG TAB PO SCH (10:19)
[2019-11-24] MEDS: METOPROLOL SUCCINATE 50 MG TAB.SR.24H PO SCH (10:19)
[2019-11-24] MEDS: LACTULOSE 20 GM/30 ML UDCUP PO SCH (10:20)
[2019-11-24] MEDS: DEXAMETHASONE SOD PHOSPHATE 4 MG/ML 1ML VIAL IVP SCH (10:20)
[2019-11-24 11:17] VITALS: BP 96/66
[2019-11-24] MEDS: LACOSAMIDE 200 MG/20 ML VIAL IV SCH (11:49)
--- NOTE | 2019-11-24 12:11 | NUR ---
ISATU RUTHERFORD WITH [facility] IN TO DO HOSPICE ADMISSION.
[2019-11-24] MEDS: CARBAMAZEPINE 200 MG TAB.ER.12H PO SCH (12:30)
[2019-11-25] VITALS: BP 105/55
== END 2019-11-24 12:14 | disposition hospice, inpatient (51) | DRG 101 ==
LOC: EDH 13:55 → EDHIP 17:05 → 3AH 19:47
PROVIDERS: ADMIT Internal Medicine Infectious Disease; ATTEND Internal Medicine Infectious Disease
DX: G40.911 Epilepsy, unspecified, intractable, with status epilepticus (principal); C71.9 Malignant neoplasm of brain, unspecified; E66.01 Morbid (severe) obesity due to excess calories; G93.89 Other specified disorders of brain; I10 Essential (primary) hypertension; Z51.5 Encounter for palliative care; Z66 Do not resuscitate; Z74.01 Bed confinement status; Z83.3 Family history of diabetes mellitus; Z92.21 Personal history of antineoplastic chemotherapy; Z92.3 Personal history of irradiation; Z68.36 Body mass index [BMI] 36.0-36.9, adult
CPT/HCPCS: 36415; 70450; 74018; 80048; 80053; 81001; 82140; 82550; 82948; 83735; 85025; 85027; 87088; 93005; 99291; G0378; J1100; J1953; J2060; J2270; Q2009

== ENCOUNTER 2019-11-24 12:15 | Inpatient (IN) | payer OTHER ==
[~2019-11-24] VITALS: Ht 180.3 cm; Wt 117.0 kg
[2019-11-24] MEDS ORDERED: MORPHINE SULFATE 2 MG/ML 1ML SYG IVP PRN (16:15)
[2019-11-24] MEDS ORDERED: COMPOUND IV MISC 1 EACH IVSOLN MISC PRN (16:15)
[2019-11-24] MEDS ORDERED: BISACODYL 10 MG SUPP.RECT RC PRN (16:15)
[2019-11-24] MEDS ORDERED: LORAZEPAM 2 MG/ML 1 ML VIAL IVP PRN (16:15)
[2019-11-24] MEDS ORDERED: ONDANSETRON HCL 4 MG/2 ML VIAL IVP PRN (16:15)
[2019-11-24] MEDS: LEVETIRACETAM 1,000 MG in SODIUM CHLORIDE 0.9% 100 ML IV SCH (17:00)
[2019-11-24] MEDS: LACTULOSE 20 GM/30 ML UDCUP PO SCH (19:17)
[2019-11-24] MEDS: DEXAMETHASONE SOD PHOSPHATE 4 MG/ML 1ML VIAL IVP SCH (19:17)
--- NOTE | 2019-11-24 20:00 | NUR ---
REPORT RECEIVED PT ON HOSPICE CARE IN HOSPITAL. PT FOR COMFORT MEASURES.
[2019-11-24] MEDS: LACOSAMIDE 200 MG/20 ML VIAL IV SCH (21:32)
[2019-11-24] MEDS: CARBAMAZEPINE 200 MG TAB.ER.12H PO SCH (21:32)
[2019-11-24] MEDS: TOPIRAMATE 100 MG TAB PO SCH (21:32)
--- NOTE | 2019-11-24 21:35 | NUR ---
MEDS SHIFT ASSESSMENT DONE, PLEASE REFER TO CHART. NOTED PT OPENING HIS EYES AND GRIMACING. SECRETIONS HEARD ON PT'S THROAT. CALLED RT FOR DEEP SUCTIONING. DUE MEDS ADMINISTERED, MORPHINE IV GIVEN FOR COMFORT, RUBINOL IV GIVEN TO LESSEN SECRETIONS AND PO MEDS GIVEN VIA NGT AFTER VERIFYING PLACEMENT. KEPT PT COMFORTABLE. FAMILY AT BEDSIDE. WILL RE-ASSESS PT. Addendum: 11/25/19 at 0322 by KAYLENE LAMA RN RN Amended: Links added.
[2019-11-24] MEDS: GLYCOPYRROLATE 1 MG/5 ML SYRINGE IV PRN (21:47)
--- NOTE | 2019-11-24 22:00 | NUR ---
SEIZURE PT'S SPOUSE CALLED AND REPORTED PT HAVING SEIZURE EPISODE. NOTED PT STARING BLANK. MEDICATED WITH ATIVAN IV. KEPT O2 VIA NC. WILL MONITOR PT.
[2019-11-25] MEDS: LEVETIRACETAM 1,000 MG in SODIUM CHLORIDE 0.9% 100 ML IV SCH ×3 (00:23→16:38)
--- NOTE | 2019-11-25 00:23 | NUR ---
MEDS PT'S SPOUSE CLAIMS THAT PT IS HAVING SLIGHT INVOLUNTARY MOVEMENTS INTERMITTENTLY. EXPLAINED TO LET STAFF KNOW SO MEDS COULD BE ADMINISTERED. IV KEPPRA INFUSED.
[2019-11-25] MEDS: GLYCOPYRROLATE 1 MG/5 ML SYRINGE IV PRN ×2 (02:42→10:45)
--- NOTE | 2019-11-25 02:42 | NUR ---
SECRETIONS NOTED PT MAKING GURGLING NOISE WITH BREATHING. RUBINOL IV ADMINISTERED. CALLED RT TO SUCTION PT. JULIETA,RT, IN AND SUCTIONED PT. KEPT HOB ELEVATED.
[2019-11-25] MEDS: LACTULOSE 20 GM/30 ML UDCUP PO SCH ×2 (04:42→16:37)
[2019-11-25] MEDS: DEXAMETHASONE SOD PHOSPHATE 4 MG/ML 1ML VIAL IVP SCH ×2 (04:42→16:38)
--- NOTE | 2019-11-25 05:23 | NUR ---
ROUNDS CALM AND QUITE AT THIS TIME. NO NOTED DISTRESS. KEPT COMFORTABLE. FOR MORE CARE AND MANAGEMENT.
[2019-11-25 07:48] VITALS: BP 138/92; PULSE 100; RESP 16; TEMP 96.3
[2019-11-25] MEDS: CARBAMAZEPINE 200 MG TAB.ER.12H PO SCH ×2 (10:37→22:33)
[2019-11-25] MEDS: TOPIRAMATE 100 MG TAB PO SCH ×2 (10:38→22:32)
[2019-11-25] MEDS: LACOSAMIDE 200 MG/20 ML VIAL IV SCH ×2 (10:46→22:33)
[2019-11-25] MEDS: MORPHINE SULFATE 2 MG/ML 1ML SYG IVP PRN (11:38)
[2019-11-25 23:30] VITALS: BP 117/86; PULSE 105; RESP 18; TEMP 100.4
[2019-11-26] MEDS ORDERED: ACETAMINOPHEN ELIXIR 650 MG/20.3 ML UDCUP PEG PRN (00:15)
[2019-11-26] MEDS ORDERED: ACETAMINOPHEN ELIXIR 650 MG/20.3 ML UDCUP ONE (00:17)
[2019-11-26] MEDS: LEVETIRACETAM 1,000 MG in SODIUM CHLORIDE 0.9% 100 ML IV SCH ×3 (00:21→17:04)
[2019-11-26] MEDS: LACTULOSE 20 GM/30 ML UDCUP PO SCH (05:05)
[2019-11-26] MEDS: DEXAMETHASONE SOD PHOSPHATE 4 MG/ML 1ML VIAL IVP SCH (05:05)
[2019-11-26 08:01] VITALS: BP 130/99; PULSE 100; RESP 20; TEMP 98
[2019-11-26] MEDS: CARBAMAZEPINE 200 MG TAB.ER.12H PO SCH (09:00)
--- NOTE | 2019-11-26 09:01 | NUR ---
[facility] f/u Nurse Almaz Duarte and Kacey to round on pt this am. Sarahi at Security post notified of ok for [facility] staff to enter and round on pt.
[2019-11-26] MEDS ORDERED: CARBAMAZEPINE 200 MG/10 ML PO SCH (10:31)
[2019-11-26] MEDS: TOPIRAMATE 100 MG TAB PO SCH (11:04)
[2019-11-26] MEDS: LACOSAMIDE 200 MG/20 ML VIAL IV SCH (11:05)
--- NOTE | 2019-11-26 14:00 | NUR ---
NG TUBE REMOVED NG TUBE NOTED TO BE COILED INSIDE PATIENTS MOUTH. PATIENTS AT BEDSIDE. REMOVED NG TUBE, NO RESISTANCE NOTED UPON NG TUBE REMOVAL. I TOLD PATIENTS I WOULD PLACE A NEW NG TUBE AND PATIENTS STATED "I DON'T WANT ANOTHER TUBE PUT IN, I JUST WANT HIM TO BE COMFORTABLE. I CAN TELL HAVING THE TUBE BOTHERS HIM." I CLARIFIED TO PATIENTS "YOU DO NOT WANT ME TO PLACE ANOTHER NG TUBE IN CASE WE NEED IT?" AND PATIENTS REPLIED "I DO NOT WANT HIM [PATIENT] TO HAVE ANOTHER TUBE PUT IN."
[2019-11-26] MEDS: MORPHINE SULFATE 2 MG/ML 1ML SYG IVP PRN (14:01)
[2019-11-26] MEDS ORDERED: LACTULOSE 20 GM/30 ML UDCUP NG PRN ×2 (14:15)
[2019-11-26] MEDS ORDERED: LORAZEPAM 2 MG/ML 1 ML VIAL IVP PRN (14:15)
[2019-11-26] MEDS ORDERED: BISACODYL 10 MG SUPP.RECT RC ONE (15:15)
--- NOTE | 2019-11-26 16:00 | NUR ---
[facility] consult Patient assessed as ordered. Wound care recommendations submitted per protocol. Addendum: 11/27/19 at 0820 by ERIN CHRISTIANSEN RN/JORGE Amended: Links added.
[2019-11-26] MEDS ORDERED: LACTULOSE 20 GM/30 ML UDCUP PO PRN (16:30)
[2019-11-26 23:42] VITALS: BP 135/95; PULSE 115; RESP 22; TEMP 99.5
[2019-11-27] MEDS: LEVETIRACETAM 1,000 MG in SODIUM CHLORIDE 0.9% 100 ML IV SCH ×3 (01:13→18:41)
[2019-11-27] MEDS: LORAZEPAM 2 MG/ML 1 ML VIAL IVP PRN (09:18)
[2019-11-27] MEDS: ACETAMINOPHEN 650 MG SUPPOSITORY RC PRN ×2 (09:23→23:23)
[2019-11-27] MEDS ORDERED: LORAZEPAM 2 MG/ML 1 ML VIAL IVP PRN (10:00)
[2019-11-27 11:31] VITALS: BP 112/91; PULSE 111; RESP 28; TEMP 98.1
[2019-11-27] MEDS: LORAZEPAM 2 MG/ML 1 ML VIAL IVP SCH ×3 (14:28→23:10)
[2019-11-28 00:02] VITALS: BP 147/91; PULSE 113; RESP 24; TEMP 100.9
[2019-11-28] MEDS: LEVETIRACETAM 1,000 MG in SODIUM CHLORIDE 0.9% 100 ML IV SCH ×3 (00:41→17:33)
[2019-11-28] MEDS: LORAZEPAM 2 MG/ML 1 ML VIAL IVP SCH ×3 (05:21→17:33)
[2019-11-28 12:00] VITALS: BP 145/89; PULSE 111; RESP 19; TEMP 97.7
[2019-11-28] MEDS: LORAZEPAM 2 MG/ML 1 ML VIAL IVP PRN (20:47)
[2019-11-29] VITALS: BP 165/74; PULSE 118; RESP 18; TEMP 99
[2019-11-29] MEDS: LORAZEPAM 2 MG/ML 1 ML VIAL IVP SCH ×4 (00:22→17:01)
[2019-11-29] MEDS: LEVETIRACETAM 1,000 MG in SODIUM CHLORIDE 0.9% 100 ML IV SCH ×3 (00:27→17:03)
[2019-11-29 08:00] VITALS: RESP 22; TEMP 98.8
[2019-11-29 09:22] VITALS: BP 151/92; PULSE 121; RESP 18; TEMP 99.6
[2019-11-29] MEDS: MORPHINE SULFATE 2 MG/ML 1ML SYG IVP PRN ×4 (11:02→18:55)
--- NOTE | 2019-11-29 16:23 | NUR ---
PATIENT REPOSITIONED TO SIDE,PILLOW SUPPORT .HEAD OF BED ELEVATED ..family at bedside
[2019-11-29 20:00] VITALS: BP 143/13; PULSE 132; RESP 48; TEMP 99.8
--- NOTE | 2019-11-29 22:15 | NUR ---
called in to patient's room, patient with agonal breathing until he finally he took his last breath, unable to obtain v/s. Family at bedside. Payton Allen (malt house loader) made aware and pronounced at 2217. Olga Mcgill network solutions architect for [facility] and Dr. Figueroa on-call for Dr. Montilla were called to make aware.
--- NOTE | 2019-11-29 23:50 | NUR ---
Spoke to [facility] staff member. Security here to transfer body down to the [facility].
== END 2019-11-29 23:30 | disposition expired | DRG 101 ==
LOC: 3AH 12:15
PROVIDERS: ADMIT Internal Medicine Hematology & Oncology; ATTEND Internal Medicine Hematology & Oncology
DX: G40.911 Epilepsy, unspecified, intractable, with status epilepticus (principal); C71.9 Malignant neoplasm of brain, unspecified; E66.01 Morbid (severe) obesity due to excess calories; I10 Essential (primary) hypertension; Z51.5 Encounter for palliative care; Z66 Do not resuscitate; Z68.36 Body mass index [BMI] 36.0-36.9, adult; Z85.841 Personal history of malignant neoplasm of brain